=== PATIENT | female | born 1935 | race African-American/Black ===

== ENCOUNTER 2018-04-09 11:21 | Inpatient (IN) | payer OTHER ==
[~2018-04-09] VITALS: Ht 154.9 cm; Wt 49.0 kg
[~2018-04-09 11:21] MED LIST: ARICEPT10 M1; DIOVAN160 MG; LIPITOR40 MG; NAMENDA 10 MG T10 MG PO; PLAVIX 75 MG TA75 M1; SPIRONOLACTONE25 M1; ZPAK PO
[2018-04-09 11:23] VITALS: BP 115/60
[2018-04-09 12:24] LABS: ABSOLUTE NEUTROPHILS 9.7 thou/uL (1.4-8.2); BASOPHILS 0.2 % (0.0-2.0); HEMATOCRIT 35.4 % (37.0-47.0); HEMOGLOBIN 11.2 gm/dL (12.0-15.0); LYMPHOCYTES 8.7 % (24.0-44.0); MCH 27.4 pg (26.0-34.0); MCHC 31.6 g/dL (28.0-37.0); MCV 86.7 fL (80.0-100.0); MONOCYTES 6.3 % (1.0-8.0); PLATELET COUNT 306 thou/uL (150-400); POLYS 84.8 % (36.0-66.0); RBC 4.08 mil/uL (4.20-5.00); RDW 16.1 % (10.5-14.5); WBC 11.4 thou/uL (4.0-11.0)
[2018-04-09] MEDS ORDERED: CRESTOR20 MG PO (12:39)
[2018-04-09 12:49] LABS: URINE BILIRUBIN NEGATIVE (Negative); URINE BLOOD 3+ (Negative); URINE CLARITY SL CLOUDY; URINE COLOR YELLOW; URINE GLUCOSE-RANDOM* NEGATIVE (Negative); URINE KETONES TRACE (Negative); URINE LEUKOCYTES-REFLEX NEGATIVE (Negative); URINE NITRITE-REFLEX NEGATIVE (Negative); URINE PROTEIN (DIPSTICK) 2+ (Negative); URINE SPECIFIC GRAVITY >= 1.030 (1.005-1.035)
[2018-04-09 13:07] LABS: SQUAMOUS >10 Many /LPF (0-3)
[2018-04-09 13:08] LABS: AMORPHOUS URATES Moderate /LPF (None Seen); FINE GRANULAR CASTS 0-3 Few /LPF (None Seen)
[2018-04-09 13:09] LABS: URINE RBC 3-10 Few /HPF (0-2)
[2018-04-09 13:10] LABS: URINE WBC-REFLEX 6-15 Few /HPF (0-5)
[2018-04-09 13:30] LABS: ANION GAP 9 mmol/L (7-16); BUN 21 mg/dL (7-18); CALCIUM 9.3 mg/dL (8.5-10.1); CHLORIDE 105 mmol/L (98-107); CO2 28 mmol/L (21-32); CREATININE 1.5 mg/dL (0.6-1.0); GLUCOSE 132 mg/dL (74-106); POTASSIUM 4.2 mmol/L (3.5-5.1); SODIUM 142 mmol/L (136-145)
[2018-04-09 13:34] LABS: SGOT 48 U/L (15-37); SGPT 23 U/L (30-65); TOTAL BILIRUBIN 0.6 mg/dL (<0.1-1.0); TOTAL PROTEIN 8.1 g/dL (6.4-8.2); TROPONIN-I <0.06 ng/mL (<0.06)
--- NOTE | 2018-04-09 13:54 | EKG ---
[place] [address] 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: WG : 1935 Requested By: Maximo Treviño Order Number: [id number] MD: Vamsi Gotti Measurements Intervals [place] Rate: 87 P: 51 [place]: 176 QRS: -28 QRSD: 98 T: 107 QT: 428 QTc: 515 Interpretive Statements Sinus rhythm Borderline left axis deviation Anterolateral infarct, age indeterminate Compared to ECG 06/07/2012 23:36:52 Myocardial infarct finding still present Electronically Signed On 04-09-2018 13:54:14 CANE FEEDER by Vamsi Gotti [email or web address] <ELECTRONICALLY SIGNED> By: Vamsi Gotti MD 04/09/18 1354 D: 12/1137 37 Vamsi Gotti MD /SALMA
[2018-04-09 14:09] LABS: CHOLESTEROL 154 mg/dL (<200); HDL CHOLESTEROL 66 mg/dL (>40); LDL CHOLESTEROL 76 mg/dL (<100); TC:HDL 2.3 Ratio (Not establshd); TRIGLYCERIDE 60 mg/dL (<150); VLDL 12 mg/dL (<40)
[2018-04-09 14:46] LABS: TSH 0.593 uIU/mL (0.358-3.740)
[2018-04-09 15:01] VITALS: BP 101/47
[2018-04-09 15:35] VITALS: BP 102/50
[2018-04-09 18:27] VITALS: BP 95/63
[2018-04-09 21:45] VITALS: BP 101/52
[2018-04-10] VITALS: BP 101/52
[2018-04-10 03:45] VITALS: BP 122/47
[2018-04-10 03:56] VITALS: BP 104/44
[2018-04-10 05:09] LABS: CALCIUM 8.4 mg/dL (8.5-10.1); CREATININE 1.3 mg/dL (0.6-1.0); POTASSIUM 3.8 mmol/L (3.5-5.1)
[2018-04-10 05:13] LABS: ALBUMIN 2.2 g/dL (3.4-5.0); PHOSPHORUS 2.1 mg/dL (2.5-4.9)
[2018-04-10 05:19] LABS: HEMATOCRIT 27.4 % (37.0-47.0); MCH 28.4 pg (26.0-34.0); MCHC 32.5 g/dL (28.0-37.0); MCV 87.5 fL (80.0-100.0); RBC 3.13 mil/uL (4.20-5.00); RDW 15.9 % (10.5-14.5)
--- NOTE | 2018-04-10 05:22 | NUR ---
ASSUMED CARE AT 1900, ASSESSMENT COMPLETED. PT NOT TALKING MUCH, NO APPARENT PAIN. HAS NOT BEEN COUGHING OR EXPECTORATING. INCONT OF URINE OVERNIGHT. IS RESISTANT TO CARES, PUSHES STAFF AWAY, AND CLENCHES ARMS AND LEGS. IV FLUIDS INFUSING OVERNIGHT. HAS LIMITED ORAL INTAKE OVERNIGHT. DAUGHTER AT BEDSIDE. NO OTHER CONCERNS, WILL CONTINUE TO MONITOR.
[2018-04-10 05:27] LABS: HEMOGLOBIN 8.9 gm/dL (12.0-15.0)
[2018-04-10 07:58] VITALS: BP 115/53
--- NOTE | 2018-04-10 11:21 | NUR ---
Pt currently on soft/fiber restricted diet however daughter states pt can eat everything without difficulty. Please change diet to regular
--- NOTE | 2018-04-10 15:06 | NUR ---
ASSESSMENT-PT LIVES AT HOME WITH HER DTR HERNANDEZ. PT HAS A SON IN [place], [place]. PT WALKS ON HER OWN AT HOME AND TAKES HER OWN SPONGE BATH. THEY LIVE IN A SPLIT LEVEL HOME. PT USES NO DME AT HOME. DTR IS INTERESTED IN GETTING INFO ON [facility] BEN[facility]. PT'S SPOUSE WAS IN THE [employer]. PT HAS HAD [facility] IN THE PAST. DTR ASKING ABOUT A HOSPITAL BED FOR MAIN FLOOR SO PT WOULD NOT HAVE TO CLIMB STEPS TO THE BEDROOM LEVEL. THERAPIES TO WORK WITH PT. FOLLOWING TO ASSIST WITH DC PLANNING.
[2018-04-10 16:35] VITALS: BP 115/53
--- NOTE | 2018-04-10 16:54 | NUR ---
Assessment completed.Pt in bed alert and oriented to self only.Dtr at bs most of the time assisting with care.Complete bath and bed change done by maintenance mechanic helper today.Dr Pickard here,order noted.Pt dtr fed pt at all meals,good appetite noted.No verbal c/o.Family at bs visiting.Will continue to monitor.
[2018-04-10 21:30] VITALS: BP 138/59
--- NOTE | 2018-04-11 04:53 | NUR ---
ASSUMED CARE AT 1900, ASSESSMENT COMPLETED. PT ALERT AND EATING DINNER, DAUGHTER AT BEDSIDE FEEDING PT--SHE REPORTED THE PT ATE ALL OF HER FOOD AT EACH MEAL. PT WAS MORE AWAKE, LESS RESISTANT WITH CARES THAN PREVIOUS SHIFT. COPIOUS AMOUNT OF INCONT URINE. IV FLUIDS INFUSING OVERNIGHT. NO OTHER CONCERNS, WILL CONTINUE TO MONITOR.
[2018-04-11 08:37] VITALS: BP 126/54
--- NOTE | 2018-04-11 09:00 | NUR ---
ASSUMED CARE OF PT AT 0700. ASSESSMENT COMPLETED AND CHARTED. SLEEPING, DROWSY, BUT AROUSABLE, ONLY ORIENTED TO SELF. HX OF DEMENTIA. AM MEDS GIVEN ORDERED. DENIES PAIN, N/V/D. DAUGHTER AT BEDSIDE. WILL CONTINUE TO MONITOR.
[2018-04-11 15:21] VITALS: BP 126/54
--- NOTE | 2018-04-11 15:24 | NUR ---
ANTICIPATE PT WILL BE READY TO DC HOME TOMORROW WITH HH SERVICES. [facility] IS ABLE TO ACCEPT PT FOR HH SERVICES. [phone], FAX [phone].
--- NOTE | 2018-04-11 17:01 | NUR ---
DTR GIVEN RESOURCE FOR JJ TO ASSIST WITH SEEING IF PT WOULD BE ELIGIBLE FOR 'S BENEFITS.
[2018-04-11 18:12] VITALS: BP 115/58
[2018-04-11 20:39] VITALS: BP 113/69
--- NOTE | 2018-04-11 20:53 | NUR ---
END OF SHIFT. ORDERS FOLLOWED TO PRODUCE BM, ONE LARGE BM NOTED. THREE PRESSUE WOUNDS NOTED ON SACRUM AND BUTTOCKS, WOUND CONSULT NEEDED.
--- NOTE | 2018-04-12 03:52 | NUR ---
ASSUMED CARE OF PT AT 1900. PT VERY DROWSY AND NONVERBAL. FAMILY IN THE ROOM AT ALL TIMES. Q2H TURN. FEEDER. INCONTINENT OF B&B. PRESSURE WOUNDS ON BUTTOICKS NOTED. PICTURES TAKEN. UNABLE TO PRINT PICTURES AT THIS TIME DUE TO PRINTER NOT WORKING. WILL REPORT THIS TO AM NURSE. FOAM DRESSING PUT ON PRESSURE WOUNDS. FALL PRECAUTIONS IN PLACE. WILL CONTINUE TO MONITOR.
[2018-04-12 06:21] LABS: BASOPHILS 0.5 % (0.0-2.0); EOSINOPHILS 1.5 % (0.0-3.0); HEMATOCRIT 26.7 % (37.0-47.0); HEMOGLOBIN 8.8 gm/dL (12.0-15.0); LYMPHOCYTES 24.1 % (24.0-44.0); MCH 28.3 pg (26.0-34.0); MCHC 32.9 g/dL (28.0-37.0); PLATELET COUNT 224 thou/uL (150-400); POLYS 63.9 % (36.0-66.0); RDW 15.6 % (10.5-14.5); WBC 6.2 thou/uL (4.0-11.0)
[2018-04-12 06:32] LABS: CREATININE 0.9 mg/dL (0.6-1.0); MAGNESIUM 1.8 mg/dL (1.8-2.4); POTASSIUM 3.2 mmol/L (3.5-5.1)
[2018-04-12 08:11] VITALS: BP 109/45
--- NOTE | 2018-04-12 12:10 | NUR ---
PT A&O TO SELF, NON AMB. IV INFUSING FLUIDS IN R HAND W/O COMPS, INCONT OF BLADDER, LOW GRADE TEMP 99.2, PT NOT TOLERATING PO WELL, VOMITED AFTER BREAKFAST. PT DID HAVE SM BM LAST NOC. NEW ODERS RECIEVED TO GIVE MAG CITRATE, POTTASIUM IV, REGLAN IV AND ENEMA. ZOFRAN IV WAS GIVEN PRIOR FOR N/V. DAUGHTER AT BEDSIDE.
--- NOTE | 2018-04-12 14:50 | NUR ---
PT'S TEMP ELEVATED 100.5 AX, HR 123. PT COUGHING ALOT WITH FULL LIQUID LUNCH TRAY. PT MORE LETHARGICNO CHANGE IN LUNG SOUNDS FROM THIS AM. SENT MESSAGE TO [facility] [place] Orders.
[2018-04-12 17:00] VITALS: BP 142/66
[2018-04-12 20:30] VITALS: BP 113/57
--- NOTE | 2018-04-13 02:56 | NUR ---
ASSUMED CARE OF PT AT 1900. Q2H TURN. PT RUNNING FEVER. ELECTRICAL CONTROLS ASSEMBLER ON DUTY NOTIFIED ABOUT PT NPO STATUS. ADVISED TO GO BACK TO FULL LIQUID DIET AND START SLOWLY, SEE HOW PT DOES. ADMINISTERED TYLENOL CRUSHED IN APPLE SAUCE. PT ABLE TO TOLERATE WELL. PT HAD LARGE LIQUID STOOL. FOAM ON PRESSURE WOUNDS CLEAN AND INTACT. FALL PRECAUTIONS IN PLACE. WILL CONTINUE TO MONITOR.
[2018-04-13 04:30] VITALS: BP 106/50
[2018-04-13 08:02] VITALS: BP 117/52
[2018-04-13 15:06] VITALS: BP 110/54
--- NOTE | 2018-04-13 18:31 | NUR ---
PT LETHARGIC MOST OF THE DAY. IV INFUSING W/O COMPS. PT WAS GIVEN SUDS SOAP ENEMA WITH RESULTS OF MORE CONSISTANCY THAN LIQUIOD STOOL. DAUGHTER AT BEDSIDE. VSS. AFEBRILE.
[2018-04-13 21:55] VITALS: BP 120/49
--- NOTE | 2018-04-14 00:20 | NUR ---
ASSUMED PT CARE AT 1900. PT AWAKE, ALERT AND SMILING. MOSTLY NON-VERBAL. FALL PRECAUTIONS IN PLACE, ROOM CLOSE TO NURSNIG STATION. ASSIST X1-2 STAFF WITH TURN AND REPOSITION IN BED. INCONTINENT B&B. NO S/SX OF PAIN. NO N/V. REMAINS NPO AT THIS TIME. IV FLUIDS AND ABX PER ORDERS. PT CURRENTLY RESTING IN BED, CALL LIGHT WITHIN REACH, FAMILY AT BEDSIDE. WILL CONTINUE TO MONITOR PT.
[2018-04-14 03:14] LABS: ALBUMIN 1.9 g/dL (3.4-5.0); CALCIUM 8.6 mg/dL (8.5-10.1); CREATININE 1.1 mg/dL (0.6-1.0); MAGNESIUM 1.9 mg/dL (1.8-2.4); PHOSPHORUS 2.5 mg/dL (2.5-4.9)
[2018-04-14 03:45] VITALS: BP 127/55
[2018-04-14 04:00] VITALS: BP 127/55
[2018-04-14 05:05] VITALS: BP 87/42
[2018-04-14 08:00] VITALS: BP 133/56
--- NOTE | 2018-04-14 08:35 | NUR ---
ASSUMED CARE OF PT AT 0700. ASSESSMENT COMPLETED AND CHARTED. PT DENIES PAIN AND STATES NO CONCERNS. HX DEMENTIA. AWAKE, ORIENTED TO SELF ONLY. FOLLOWS SOME COMMANDS. MAINTAINING NPO STATUS DUE TO ASPIRATION. DAUGHTER AT BEDSIDE. WILL CONTINUE TO MONITOR.
[2018-04-14 09:29] LABS: % SATURATION 24 % (20-39); IRON 38 ug/dL (50-170); TIBC 160 ug/dL (250-450)
--- NOTE | 2018-04-14 14:14 | NUR ---
S/W DTR AND SHE IS INTERESTED IN [facility] FOR REHAB. ASKED DC DRAWBENCH OPERATOR TO FAX REFERRAL. S/W ADMISSIONS AT [facility] AND THEY MAY HAVE A BED AVAILABLE. ANTICIPATE DC TOMORROW AND DTR AWARE AND AWARE [facility] MAY OR MAY NOT HAVE A BED. HAVE ASKED HER FOR ADDITIONAL CHOICES BUT DTR HAS NOT YET PROVIDED THEM. [facility] [phone]=, FAX [phone]. CHART COPY WILL HAVE TO BE DONE. CALL [phone] TOMORROW TO CHECK ON BED AVAILABILITY.
--- NOTE | 2018-04-14 14:41 | NUR ---
FAXED REFERRAL TO [facility] SPOKE WITH [place] IN ADM. AND SHE RECEIVED REFERRAL AND WILL REVIEW. DCP TO FOLLOW.
[2018-04-14 16:05] VITALS: BP 131/70
[2018-04-14 19:42] VITALS: BP 141/58
--- NOTE | 2018-04-14 19:52 | NUR ---
END OF SHIFT. NO CHANGE IN PT STATUS. VSS. DAUGHTER AT BEDSIDE.
--- NOTE | 2018-04-15 04:53 | NUR ---
ASSUMED PT CARE 1900. PT ALERT TO SELF. REASSESSMENT COMPLETED. CONTINUING Q2 TURNS, PT CAN BE SLIGHTLY UNCOOPERATIVE WITH TURNS. DRESSINGS TO WOUNDS ON BUTTICK CHANGED X2. CURRENT DRESSINGS C/D/I. IV TO R AND L HAND. R HAND HAS SOME SWELLING, NO REDNESS OR TENDERNESS WHEN TOUCHED. IV DRESSINGS C/D/I. VSS. PT DAUGHTER AT BEDSIDE. PT CALL LIGHT AND PERSONAL BELONGINGS WITHIN REACH. WILL CONTINUE POC UNTIL EOS.
[2018-04-15 04:57] VITALS: BP 138/107
[2018-04-15 05:39] LABS: CALCIUM 8.4 mg/dL (8.5-10.1); CREATININE 1.1 mg/dL (0.6-1.0); POTASSIUM 3.9 mmol/L (3.5-5.1)
[2018-04-15 08:56] VITALS: BP 128/58
[2018-04-15] MEDS ORDERED: AUGMENTIN 400-1 EACH PO (10:15)
[2018-04-15] MEDS ORDERED: SENOKOT-S1 TA2 PO (10:15)
--- NOTE | 2018-04-15 15:47 | NUR ---
Assumed pt care at 7am.Pt in bed very quiet but pleasantly confused.Assessmnet completed.Vss.Pt dtr at most of the time assisting with care.Dr Pickard here,dc order noted.[facility] called about dc but was told that pt cannot be accepted. Dtr notified and she called [facility]. The admission personnel said pt will be accepted in am after competion of paper work by catalytic case operator.Dr Pickard notified and said it was okay for pt to dc in am.Pt tolerated meds and diet.Partial bath given by grove worker.Will continue to monitor.
[2018-04-15 15:56] VITALS: BP 113/56
[2018-04-15 22:40] VITALS: BP 106/43
--- NOTE | 2018-04-16 01:31 | NUR ---
ASSUMED PT CARE 0. PT ALERT AND ORIENTEED TO SELF. AWARE OF DAUGHTER AT BEDSIDE. VSS. REASSESSMENT COMPLETE. WOUND DRESSING C/D/I. IV TO R FOREARM. DRESSING C/D/I. SWELLING TO R HAND. FALL RISK PRECAUTIONS IMPLEMENTED. CONTINUEING Q2 TURNS. PT CALL LIGHT AND PERSONAL BELONGINGS WIOTHIN REACH. WILL CONTINUE POC UNTIL EOS.
[2018-04-16 04:15] VITALS: BP 98/53
--- NOTE | 2018-04-16 07:07 | HC ---
[facility] [place] [address] [place] [address] CONSULTATION Name: JULIANNE BARON Room #: 429-P ADM IN M.R.#: [id number] Admission: 04/09/18 Attend Phys: Mainor Pickard Discharge: Date of : 31 Report #: [id number] THIS REPORT FOR: //name// CC: Mainor Kulkarni MD REASON FOR CONSULTATION: Left breast mass found on CAT scan. HISTORY OF PRESENT ILLNESS: The patient is a very pleasant 82-year-old female with a history of fairly severe dementia. She was admitted for encephalopathy and is thought to have an early pneumonia. She also had a CAT scan done to evaluate abdominal pain, was found to have a 3.5 x 3 cm irregular heterogeneous mass within the deep left breast, worrisome for breast carcinoma. They did not see anything worrisome for metastatic disease. The patient has not had a mammogram in some time. Daughter is not sure when her last breast exam was. Most of the history is from the patient's daughter who is present in the room. The patient at this time seems comfortable without any unusual ill. Per the earlier notes, the patient was admitted with generalized complaint of weakness and decrease in alertness about the last 3 days. It sounds like she was not specifically having any nausea, vomiting, diarrhea, rhinorrhea, fevers, chills, bowel or bladder changes. PAST MEDICAL HISTORY: Notable for the history of a heart attack in the past, also a stroke in the past. LABORATORY DATA: This admit notable for creatinine that was a little higher initially. It is currently 1.1. Liver function is mostly normal. Albumin 1.9. CPK on admission was 1608. White count was 6.2; hemoglobin 8.8, had been 11.2 on admission; MCV 86; platelets 224; differential mostly normal. UA did have squamous cells as well as some bacteria. It was nitrite negative. MEDICATIONS: At this time in the hospital currently include Zosyn, lactated Ringer's, Tylenol, Ambien, nitroglycerin p.r.n., Zofran p.r.n., MiraLax have been given, but held. PHYSICAL EXAMINATION: GENERAL: The patient appears her stated age, is an elderly female. VITAL SIGNS: Height is 5 feet 1 inch, which is 154.9 cm. Weight 108 pounds or 49.9 kilograms. Blood pressure 127/55, O2 sat 96%, respirations 16, pulse 62. Afebrile though she did have a fever on 04/12/2018 up to 101.7. MOOD: She is pleasant when she talks. NEUROLOGIC: Slow to answer questions and able only to answer short answers or short sentences. Does not offer information. This is all consistent with her mild dementia. [address] [address] CONSULTATION Name: JULIANNE BARON Room #: 429-P ADM IN M.R.#: [id number] Admission: 04/09/18 Attend Phys: Mainor Pickard Discharge: Date of : 31 Report #: [id number] HEENT: Face seems symmetrical. HEART: Appears regular rate. ABDOMEN: Scaphoid without masses. EXTREMITIES: Without clubbing or cyanosis. Left breast does have a mass in the lower outer quadrant consistent with that seen on CAT scan. The skin is not attached on the surface, nor was it attached to the chest wall. I do not feel any enlarged lymph nodes. DISCUSSION: Discussed with the patient's daughter that I am worried that this could be a breast cancer that it is hard to know how long it has been there. Discussed that options might include doing a biopsy, though she would have to be off her Plavix for 5 or 7 days. This could be done as outpatient. Also discussed doing a mammogram and ultrasound as baseline, could get together in several weeks to discuss. Options could include no biopsy, biopsy, breast conserving therapy without a biopsy and observation or could watch and only initiate biopsy or medication if it progresses. The patient's daughter will think about this and also consult with her brother who is coming in town later today. I gave them my card. We could consider getting together in several weeks. ASSESSMENT AND PLAN: 1. Left breast mass worrisome for cancer. Doubt that this would increase the daughter's risk as this is patient without any family history of breast cancer in her sisters or other family members. As above, we will arrange for ultrasound and possibly mammogram. We will consider either observation or biopsy or initiation of therapy. Would like to see as an outpatient in 2-3 weeks. 2. Anemia. We will check iron panels. 3. History of pneumonia. Continue antibiotic. 4. Dementia. Defer to others. 5. History of heart attack and stroke, Plavix. Will be available to follow as an outpatient. <ELECTRONICALLY SIGNED> By: Desmond Calderon MD 04/16/18 0707 [id number] Desmond Calderon MD /nt
[2018-04-16 08:01] VITALS: BP 116/60
[2018-04-16 12:07] VITALS: BP 126/54
--- NOTE | 2018-04-16 12:21 | NUR ---
PT. DISCHARGING TODAY [facility]. FAXED DC ORDERS/SUMMARY TO FACILITY AND SPOKE WITH ALAIAN IN ADM AND SHE RECEIVED DC ORDERS AND SET UP WC [facility]AN TRANSPORT FOR 1430 TODAY. NOTIFIED DTR (HERNANDEZ) OF DISCHARGE AND TIME OF TRANSPORT. UNIT NOTIFIED AND CHART COPY PER [place]. RN TO CALL REPORT TO [phone].
--- NOTE | 2018-04-16 14:49 | NUR ---
WOUND CONSULT; ASSESMENT COMPLETED TODY REVEALS A LEFT AND RIGHT BUTTOCK WOUND WELL A POSTERIOR UPPER THIGH WOUND; ALL ARE CONSISTANT WITH FRICTION SHERING INJURY. BEEFY RED TISSUE WITH NO S/S OF INFECTION, SCANT DRAINAGE SEEN. CURRENTLY USING FOAM DRESSINGS. RECOMMENDTIONS; BARRIER CREAM ONLY TO ALL WOUNDS APPLY DAILY/PRN, TURN Q2H DISCUSSED WITH LORNA
--- NOTE | 2018-04-16 16:28 | NUR ---
ASSUMED CARE OF PT AT 0700. ASSESSMENT COMPLETED AND CHARTED. HX DEMENTIA, FOLLOWS SOME COMMANDS, UNABLE TO VOICE CONCERNS. DENIES PAIN, N/V/D. INCONTINENT OF B/B, Q2H TURNS. SHEARING WOUNDS X3 ON SACRUM AND BUTTOCK, BARRIER CREAM APPLIED ORDERED. DAUGHTER AT BEDSIDE. NEW D/C ORDERS. IV REMOVED, NO BLEEDING. REPORT CALLED TO [facility] PRIOR TO LEAVING. PT LEFT VIA WHEELCHIAR IN STABLE CONDITION AT 15:00 WITH MEDICAL TRANSPORT.
== END 2018-04-16 15:12 | DRG 177 ==
LOC: ER 11:21 → 4E 14:17 → EROBS 14:17 → 4E 15:42
PROVIDERS: Internal Medicine Hematology & Oncology; Nurse Practitioner Family; Physician Assistant; ADMIT Hospitalist
DX: J15.6 Pneumonia due to other Gram-negative bacteria (principal); G93.41 Metabolic encephalopathy; E43 Unspecified severe protein-calorie malnutrition; K56.600 Partial intestinal obstruction, unspecified as to cause; N39.0 Urinary tract infection, site not specified; M62.82 Rhabdomyolysis; Z66 Do not resuscitate; Z79.899 Other long term (current) drug therapy; N63.23 Unspecified lump in the left breast, lower outer quadrant; N18.9 Chronic kidney disease, unspecified; D64.9 Anemia, unspecified; F03.90 Unspecified dementia, unspecified severity, without behavioral disturbance, psychotic disturbance, mood disturbance, and anxiety; Z86.73 Personal history of transient ischemic attack (TIA), and cerebral infarction without residual deficits; I25.2 Old myocardial infarction; Z68.20 Body mass index [BMI] 20.0-20.9, adult
CPT/HCPCS: 10783

== ENCOUNTER 2018-08-11 13:38 | Emergency (ER) | payer OTHER ==
[~2018-08-11] VITALS: Ht 154.9 cm; Wt 52.6 kg
[~2018-08-11 13:38] MED LIST changes: -ARICEPT10 M1; +ARICEPT10 M1 PO; +AUGMENTIN 400-1 EACH PO; +CRESTOR20 MG PO; -PLAVIX 75 MG TA75 M1; +PLAVIX 75 MG TA75 M1 PO; +SENOKOT-S1 TA2 PO
[2018-08-11 14:10] LABS: URINE BILIRUBIN NEGATIVE (Negative); URINE BLOOD NEGATIVE (Negative); URINE CLARITY CLEAR; URINE COLOR YELLOW; URINE GLUCOSE-RANDOM* NEGATIVE (Negative); URINE KETONES NEGATIVE (Negative); URINE LEUKOCYTES NEGATIVE (Negative); URINE NITRITE NEGATIVE (Negative); URINE PROTEIN (DIPSTICK) TRACE (Negative); URINE SPECIFIC GRAVITY 1.025 (1.005-1.035); URINE UROBILINOGEN 0.2 E.U./dl (0.2-1.0)
[2018-08-11 14:18] LABS: HEMATOCRIT 32.9 % (37.0-47.0); HEMOGLOBIN 10.9 gm/dL (12.0-15.0); MCH 29.2 pg (26.0-34.0); MCHC 33.1 g/dL (28.0-37.0); MCV 88.1 fL (80.0-100.0); PLATELET COUNT 269 thou/uL (150-400); RBC 3.73 mil/uL (4.20-5.00); WBC 9.5 thou/uL (4.0-11.0)
[2018-08-11] MEDS ORDERED: ARIMIDEX1 MG PO (14:22)
[2018-08-11] MEDS ORDERED: LIPITOR40 MG PO (14:23)
[2018-08-11] MEDS ORDERED: ERGOCALCIF50000 UNIT PO (14:23)
[2018-08-11] MEDS ORDERED: PHARMACY (14:24)
[2018-08-11 14:25] LABS: CALCIUM 9.2 mg/dL (8.5-10.1); CREATININE 1.3 mg/dL (0.6-1.0)
[2018-08-11 14:32] LABS: ALBUMIN 3.4 g/dL (3.4-5.0); TOTAL BILIRUBIN 0.5 mg/dL (<0.1-1.0); TOTAL PROTEIN 7.8 g/dL (6.4-8.2)
[2018-08-11 14:45] LABS: TROPONIN-I <0.06 ng/mL (<0.06)
[2018-08-11 14:53] LABS: PLATELET ESTIMATE NORMAL
[2018-08-11 14:59] VITALS: BP 136/60
--- NOTE | 2018-08-12 07:58 | EKG ---
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: [place] : 1935 Requested By: Saad Wong Order Number: [id number] MD: Phil Laguerre Measurements Intervals [place] Rate: 76 P: [place]: QRS: -14 QRSD: 107 T: 44 QT: 462 QTc: 520 Interpretive Statements Sinus rhythm Low voltage Inferior infarct, old Probable anteroseptal infarct, recent Prolonged QT interval Compared to ECG 04/09/2018 11:38:59 No significant change was found Electronically Signed On 08-12-2018 7:57:55 CDT by Phil Laguerre [email or web address] ��������������������������������������������� <ELECTRONICALLY SIGNED> ���������������������������������������� By: Phil Laguerre MD, [facility] ��������������������������������������������� 08/12/18 0757 1451 [id number] Phil Laguerre MD, [facility] /EPI
== END 2018-08-11 16:31 | disposition home or self-care (01) ==
LOC: ER 13:38
PROVIDERS: Emergency Medicine
DX: R53.83 Other fatigue (principal); R63.0 Anorexia; F03.90 Unspecified dementia, unspecified severity, without behavioral disturbance, psychotic disturbance, mood disturbance, and anxiety; N18.3 Chronic kidney disease, stage 3 (moderate); Z86.73 Personal history of transient ischemic attack (TIA), and cerebral infarction without residual deficits; Z85.3 Personal history of malignant neoplasm of breast